=== PATIENT | female | born 1985 | race Two or more races ===

== ENCOUNTER 2019-05-30 13:14 | Emergency (ER) | payer OTHER ==
[~2019-05-30] VITALS: Ht 162.6 cm; Wt 122.5 kg
[2019-05-30 13:48] VITALS: BP 112/67
[2019-05-30] MEDS ORDERED: MEPERIDINE HCL (50 MG/ML) 1 ML VIAL IM ONE (15:15)
[2019-05-30] MEDS ORDERED: PROMETHAZINE HCL 25 MG/ML 1ML IM ONE (15:15)
== END 2019-05-30 16:49 | disposition home or self-care (01) ==
LOC: ER 13:18
DX: M48.061 Spinal stenosis, lumbar region without neurogenic claudication (principal); M54.16 Radiculopathy, lumbar region; E66.01 Morbid (severe) obesity due to excess calories; Z68.42 Body mass index [BMI] 45.0-49.9, adult
CPT/HCPCS: 72131; 73502; 96372; 99284; J2175; J2550